=== PATIENT | male | born 1990 | race African-American/Black ===

== ENCOUNTER 2017-03-13 21:47 | Emergency (ER) | payer BC ==
[~2017-03-13] VITALS: Ht 172.7 cm; Wt 86.2 kg
[2017-03-14 01:40] VITALS: BP 123/81
[2017-03-14] MEDS ORDERED: HYDROcodone-ACET 10/325MG TAB PO ONE (02:30)
== END 2017-03-14 03:32 | disposition home or self-care (01) ==
LOC: ER 21:58
DX: R07.89 Other chest pain (principal); R09.1 Pleurisy; M79.601 Pain in right arm
CPT/HCPCS: 71101